=== PATIENT | female | born 1975 | race Caucasian/White ===

== ENCOUNTER → 2018-06-07 16:39 | Outpatient (CLI) | payer OTHER, SELFPAY ==
[2018-06-11 14:11] LABS: HPV Reflexed? NOT INDICATED
== END ==
PROVIDERS: Visit Provider Obstetrics & Gynecology
DX: Z12.4 Encounter for screening for malignant neoplasm of cervix (principal)
CPT/HCPCS: 88175; G0145

== ENCOUNTER → 2018-07-21 15:24 | Outpatient (CLI) | payer OTHER, SELFPAY ==
--- NOTE | 2018-07-21 15:28 | BI_ITS ---
MAMMOGRAPHY - BILATERAL SCREENING REASON FOR EXAM: Female, 42 years old. Routine annual screening examination. PERTINENT HISTORY: Mother with breast cancer. Grandmother with breast cancer. TECHNIQUE: Digital bilateral breast cale (3D mammographic acquisition) in the CC and MLO projections. 2-D mediolateral oblique (MLO) and craniocaudad (CC) views of both breasts were obtained. CAD: Full Field Digital Mammography with Computer Added Detection was performed. COMPARISON: Comparison is made with prior study dated June 15, 2017 and June 03, 2016. FINDINGS: Breast Composition: The breasts are extremely dense, which lowers the sensitivity of mammography. There are no dominant masses or suspicious calcifications. No other significant abnormalities are identified. There has been no significant change since the prior study. BI/SCREENING MAMM (CAD), BILAT IMPRESSION: Stable bilateral screening mammogram. Yearly follow-up mammogram recommended. (A) ASSESSMENT CATEGORY: BIRADS Category 1: Negative. A letter regarding these results will be sent to the patient by the facility within 30 days. Approximately 10% of breast cancers are not detected by mammography. A normal mammogram should not delay biopsy of a clinically suspicious abnormality. [id number] Electronically Signed: Mk Harrison MD at 8:54 EST Tel [phone], Service support ,
== END ==
PROVIDERS: Family Provider Student in an Organized Health Care Education/Training Program; PCP Student in an Organized Health Care Education/Training Program; Visit Provider Obstetrics & Gynecology
DX: Z12.31 Encounter for screening mammogram for malignant neoplasm of breast (principal)
CPT/HCPCS: 77063; 77067

== ENCOUNTER 2018-12-01 16:00 | Emergency (ER) | payer OTHER, SELFPAY ==
[2018-12-01 16:01] VITALS: BP 123/81; PULSE 71; RESP 13; TEMP 37.4; O2SAT 96; BMI 21.1
--- NOTE | 2018-12-01 16:18 | ED.VISSUMM ---
- ER Visit Summary Date of Service: 12/01/18 Chief Complaint: Constipation History of Present Illness: The patient is a 43 F who is having difficulty with bowel movements. Her last bowel movement was 2 days ago. She has tried walking and taking increased water, but nothing seems to help. She feels like she needs to have a bowel movement. She went to urgent care and they said they could not help her, so she was referred here. She is asking about enemas or suppositories. She has not tried any of those yet. Patient has had some changes in her food. She is following closely with a residence hall director and eats very healthily, but she has been trying some new foods. She is taking zinc capsules. Patient does report sensitivities to multiple drugs and other substances and is very cautious about any kind of chemicals. Otherwise no fevers, no vomiting, no urinary symptoms. No other issues. No history of constipation with fecal impaction Physical Examination: Afebrile and vital signs are unremarkable. Patient is pacing about the room and appears uncomfortable but she is not toxic or in distress. Skin normal in color. Normal heart rate and no respiratory distress. Test Results: None performed Emergency Department Course and Treatment: It sounds like the patient has a fecal impaction trying new foods and supplements. She is otherwise very healthy and very conscious about what she eats and ingests. After discussion with her, we will try a soapsuds enema. Patient is improved after enema and will be discharged. Increase fluids and fiber. Follow-up with primary care. Treatment Plan: As above Disposition: Discharge Impression: 1. Constipation This note was generated with [employer] dictation software. It may contain incorrect words, spelling, and punctuation that were not noted in review of the chart prior to signing ED Disposition - Plan for ED Patient: Referrals: Alessandro Lebron DO [Primary Care Provider] -
--- NOTE | 2018-12-01 17:09 | ED.DEP ---
ED Disposition - Plan for ED Patient: Instructions: ED Impaction Fecal Treated Referrals: Alessandro Lebron DO [Primary Care Provider] -
== END 2018-12-01 17:17 | disposition home or self-care (01) ==
LOC: ED 16:23
PROVIDERS: Emergency Provider Emergency Medicine; Family Provider Student in an Organized Health Care Education/Training Program; PCP Student in an Organized Health Care Education/Training Program
DX: K59.00 Constipation, unspecified (principal); E72.12 Methylenetetrahydrofolate reductase deficiency
CPT/HCPCS: 99284

== ENCOUNTER → 2019-07-03 16:46 | Outpatient (CLI) | payer OTHER, SELFPAY ==
[2019-07-06 15:49] LABS: HPV Reflexed? NOT INDICATED
== END ==
PROVIDERS: PCP Student in an Organized Health Care Education/Training Program; Visit Provider Obstetrics & Gynecology
DX: Z12.4 Encounter for screening for malignant neoplasm of cervix (principal)
CPT/HCPCS: 88175; G0145

== ENCOUNTER → 2019-07-25 15:35 | Outpatient (CLI) | payer OTHER, SELFPAY ==
--- NOTE | 2019-07-25 15:37 | BI_ITS ---
MAMMOGRAPHY - BILATERAL SCREENING REASON FOR EXAM: Female, 43 years old. Routine annual screening examination. PERTINENT HISTORY: Mother with breast cancer. Grandmother with breast cancer. TECHNIQUE: Digital bilateral breast mitra (3D mammographic acquisition) in the CC and MLO projections. 2-D mediolateral oblique (MLO) and craniocaudad (CC) views of both breasts were obtained. CAD: Full Field Digital Mammography with Computer Added Detection was performed. COMPARISON: Comparison is made with prior study dated July 21, 2018 and June 15, 2017. FINDINGS: Breast Composition: The breasts are extremely dense, which lowers the sensitivity of mammography. There are no dominant masses or suspicious calcifications. No other significant abnormalities are identified. There has been no significant change since the prior study. BI/SCREEN MAMM (CAD) W/MITRA BILAT IMPRESSION: Stable bilateral screening mammogram. Yearly follow-up mammogram recommended. (A) ASSESSMENT CATEGORY: BIRADS Category 1: Negative. A letter regarding these results will be sent to the patient by the facility within 30 days. Approximately 10% of breast cancers are not detected by mammography. A normal mammogram should not delay biopsy of a clinically suspicious abnormality. [id number] Electronically Signed: Mk Harrison, at 8:57 EST , Service support ,
== END ==
PROVIDERS: Family Provider Student in an Organized Health Care Education/Training Program; PCP Student in an Organized Health Care Education/Training Program; Referring Provider Obstetrics & Gynecology; Visit Provider Obstetrics & Gynecology
DX: Z12.31 Encounter for screening mammogram for malignant neoplasm of breast (principal)
CPT/HCPCS: 77063; 77067

== ENCOUNTER → 2020-07-08 | Outpatient (CLI) | payer OTHER, SELFPAY ==
[2020-07-15 20:06] LABS: HPV Reflexed? NOT INDICATED
== END | disposition home or self-care (01) ==
LOC: LABSPEC 16:02
PROVIDERS: PCP Student in an Organized Health Care Education/Training Program; Visit Provider Student in an Organized Health Care Education/Training Program
DX: Z12.4 Encounter for screening for malignant neoplasm of cervix (principal)
CPT/HCPCS: 88175; G0145

== ENCOUNTER → 2020-08-02 14:53 | Outpatient (CLI) | payer OTHER, SELFPAY ==
--- NOTE | 2020-08-02 14:55 | BI_ITS ---
MAMMOGRAPHY - BILATERAL SCREENING REASON FOR EXAM: Female, 45 years old. Routine annual screening examination. PERTINENT HISTORY: Mother with breast cancer. Grandmother with breast cancer. TECHNIQUE: Digital bilateral breast mitra (3D mammographic acquisition) in the CC and MLO projections. 2-D mediolateral oblique (MLO) and craniocaudad (CC) views of both breasts were obtained. CAD: Full Field Digital Mammography with Computer Added Detection was performed. COMPARISON: Comparison is made with prior examination dated 07/25/2019 and 07/21/2018. FINDINGS: Breast Composition: The breasts are extremely dense, which lowers the sensitivity of mammography. There are no dominant masses or suspicious calcifications. No other significant abnormalities are identified. There has been no significant change since the prior study. BI/SCREEN MAMM (CAD) W/MITRA BILAT IMPRESSION: Stable bilateral screening mammogram. Yearly follow-up mammogram recommended. (A) ASSESSMENT CATEGORY: BIRADS Category 1: Negative. A letter regarding these results will be sent to the patient by the facility within 30 days. Approximately 10% of breast cancers are not detected by mammography. A normal mammogram should not delay biopsy of a clinically suspicious abnormality. [id number] Electronically Signed: Mk Harrison, at 15:40 EST , Service support ,
== END ==
PROVIDERS: PCP Student in an Organized Health Care Education/Training Program; Referring Provider Student in an Organized Health Care Education/Training Program; Visit Provider Student in an Organized Health Care Education/Training Program
DX: Z12.31 Encounter for screening mammogram for malignant neoplasm of breast (principal)
CPT/HCPCS: 77063; 77067

== ENCOUNTER 2021-05-23 08:38 | Emergency (ER) | payer OTHER, SELFPAY ==
[2021-05-23 08:41] VITALS: BP 151/136; PULSE 101; RESP 16; TEMP 36.5; O2SAT 99; BMI 21.4
[2021-05-23 09:00] VITALS: O2SAT 98
--- NOTE | 2021-05-23 09:40 | EX.ED.DYSGE1 ---
HPI History of Present Illness Chief Complaint: Shortness of Breath Informant: patient and spouse/S.O. Narrative Narrative: Patient is a 45-year-old female with history of mast cell disease follows with [facility] presenting with worsening shortness of breath. Patient states for the past 2 weeks she has been having episodes where she feels that her throat is itching and burning. She also gets numbness and burning around her mouth and burning in her hands and feet. Today she had an episode where this was happening and she also started to have spasms of her hands where she could not move them. Patient self administered an EpiPen that was recently prescribed to her and then came to the emergency room. She notes she did go off of her Singulair this summer in an attempt to be more naturalistic. She denies any new exposures over the past 2 weeks however notes that they did recently change their water softener system. She is not sure if this is triggering her symptoms. She denies any new stressors in her life except for her medical issues. She notes her father does have a history of blood clots as well as multiple autoimmune diseases. Patient follows with an shaping machine operator, GI doctor and functional medicine doctor, all in the [facility] system. She notes today the oxygen felt heavy and she felt like she was not breathing and oxygen. She had blood work earlier this week through her PCP including CBC, CMP, B12 and folic acid. Her last thyroid labs were checked back in February and were normal. Patient know she has been having night sweats amd intermittent rashes as well. [facility] Medical History Mast cell disease Home Medications montelukast 1 tab PO DAILY 12/01/18 [History Last Taken Unknown] Allergy/AdvReac Type Severity Reaction Status Date / Time bee venom protein (honey bee) Allergy Hives Verified 05/23/21 09:25 Beef Containing Products Allergy unknown, Verified 05/23/21 09:25 shown up on allergy testing garlic Allergy unknown, Verified 05/23/21 09:25 shown up on allergy testing milk Allergy unknown, Verified 05/23/21 09:25 shown up on allergy testing Social History Smoking Status: Never smoker ROS ROS ED Constitutional Constitutional ED: Reports sweats; Denies chills or fever(s) ENT ENT ED: Reports sore throat; Denies ear pain or rhinorrhea Cardiovascular Cardiovascular: Denies chest pain or palpitations Respiratory/Chest Respiratory/Chest: Reports dyspnea; Denies cough, dyspnea on exertion or sputum Gastrointestinal Gastrointestinal: Denies abdominal pain, nausea or vomiting Genitourinary Genitourinary ED: Denies dysuria Musculoskeletal Musculoskeletal: Denies arthralgias or myalgias Integumentary Reports rash Neurologic Neurologic: Reports paresthesias; Denies headache(s) or weakness Psychiatric Psychiatric: Denies anxiety or depression EXAM Physical Exam Const Vital Signs: 05/23/21 08:41 05/23/21 09:00 Temperature 97.7 F L Temperature Source Temporal Pulse Rate 101 H Respiratory Rate 16 Respiratory Effort Normal Respiratory Depth Normal Respiratory Pattern Normal Blood Pressure 151/136 H Blood Pressure Mean 141 Pulse Ox 99 Oxygen Delivery Method Room Air Room Air Positive well nourished and well developed General Appearance ED: well developed HEENT Reports TM's clear and moist mucous membranes HEENT Narrative: Normal oropharynx. Uvula is midline. Negative for trauma Tympanic Membrane ED: Yes TM's clear Eyes PERRL and EOMs intact bilaterally Neck no lymphadenopathy, supple and no JVD Chest Wall inspection of chest normal Resp normal respiratory effort and clear to auscultation bilaterally Cardio regular rate, regular rhythm and no murmurs GI normal to inspection, nondistended, normoactive bowel sounds and non-tender Extremity normal to inspection Extremity Narrative: Patient does develop carpal spasm when blood pressure cuff goes off General Extremety ED: Negative for edema or tenderness General Extremity: Negative for edema Neuro oriented x3, CN's II-XII intact bilaterally and no sensory deficits noted Sensorium / Orientation: alert Psych mental status grossly normal Mood & Affect: anxious Skin no rashes or lesions noted and no wounds MDM MDM MDM Narrative Medical decision making narrative: Patient evaluated for constellation of symptoms including episodes of burning sensation in her mouth and then burning in her extremities as well as spasms of her hands. While in the ER she does demonstrate a carpal spasm with a blood pressure cuff. I question if she is having carpopedal spasm from hyperventilation even though she states she has been breathing normally. While in the ER she is very anxious and speaking rapidly and that seems to exacerbate her symptoms however she does seem to be breathing normally. Screening lab work is grossly normal. Her potassium is mildly low at 3.3. She is offered potassium supplements but would prefer to increase her dietary potassium intake. D-dimer is negative and I do not think this is cardiac in nature. Her breath sounds are clear and she has no findings consistent with anaphylaxis. Patient is offered an anxiolytic as I think this would help but she declines. She does state that she is willing to go back on her Singulair. She is encouraged to follow-up with her activity assistant as well as her PCP. She states she previously been referred to neurology and I did discuss that it could be beneficial to rule out more obscure causes of her symptomatology. Patient is also encouraged to follow-up with endocrinology given her family history of autoimmune disorders and her consultation of symptoms. Patient is counseled on return precautions. She declines any medications including prednisone stating that she is too sensitive to medicines. Patient is counseled on signs and symptoms requiring return to the emergency room. Patient verbalizes agreement and understand this plan. Patient discharged home in stable and improved condition. Patient's PCP is paged to discuss the patient's visit. Lab Data Attestation: I reviewed the patient's lab results. Labs: Laboratory Results - last 24 hr 05/23/21 05/23/21 05/23/21 09:35 09:35 09:35 WBC 5.2 RBC 4.78 Hgb 14.9 Hct 43.4 MCV 90.8 MCH 31.2 MCHC 34.3 RDW Std Deviation 40.6 RDW Coeff of Salty 12.0 Plt Count 244 MPV 8.9 Immature Gran % (Auto) 0.200 Neut % (Auto) 74.0 H Lymph % (Auto) 15.6 L [place] % (Auto) 5.6 Eos % (Auto) 2.9 Baso % (Auto) 1.7 H Absolute Neuts (auto) 3.8 Absolute Lymphs (auto) 0.81 L Nucleated RBC % 0 D-Dimer Quant (PE/DVT) <= 0.27 Sodium Potassium Chloride Carbon Dioxide Anion Gap BUN Creatinine BUN/Creatinine Ratio Glucose Magnesium 2.1 TSH 1.27 Urine Color Urine Clarity Urine pH Ur Specific [place] Urine Protein Urine Glucose (UA) Urine Ketones Urine Occult Blood Urine Nitrite Urine Bilirubin Urine Urobilinogen Ur Leukocyte Esterase Urine RBC Urine WBC Ur Squamous Epith Cells Urine Bacteria Urine Mucus 05/23/21 05/23/21 09:35 10:03 WBC RBC Hgb Hct MCV MCH MCHC RDW Std Deviation RDW Coeff of Salty Plt Count MPV Immature Gran % (Auto) Neut % (Auto) Lymph % (Auto) [place] % (Auto) Eos % (Auto) Baso % (Auto) Absolute Neuts (auto) Absolute Lymphs (auto) Nucleated RBC % D-Dimer Quant (PE/DVT) Sodium 139 Potassium 3.3 L Chloride 105 Carbon Dioxide 26.0 Anion Gap 8 BUN 12 Creatinine 0.79 BUN/Creatinine Ratio 15.2 Glucose 116 H Magnesium TSH Urine Color Straw Urine Clarity Clear Urine pH 7.0 Ur Specific [place] 1.010 Urine Protein Negative Urine Glucose (UA) Normal Urine Ketones Negative Urine Occult Blood Negative Urine Nitrite Negative Urine Bilirubin Negative Urine Urobilinogen Normal Ur Leukocyte Esterase Negative Urine RBC 0 SEEN Urine WBC 0 SEEN Ur Squamous Epith Cells 0 SEEN Urine Bacteria 0 SEEN Urine Mucus 0 SEEN Discharge Plan Triage Chief Complaint: Shortness of Breath ED Provider: Bernadine Lewis Dx/Rx/DC Orders Clinical Impression: Paresthesia, Burning sensation of throat, Spasms of the hands or feet, Hypokalemia Instructions: ED Hypokalemia, ED Pain, Acute, Uncertain Cause, ED Paraesthesias Prescriptions: No Action montelukast 10 tablet 1 tab PO DAILY RF: 0 Primary Care Provider: Alessandro Lebron Referrals: Alessandro Lebron DO [Primary Care Provider] - Activity Restrictions/Additional Instructions: I would recommend resume starting your Singulair. Do not take epinephrine unless you feel that your throat is closing up, you have a lip/tongue swelling or other similar symptoms. The trigger for your underlying mast cell is not clear at this time however your work-up here is largely normal. I recommend he follow-up with your activity assistant as well as neurology. Your potassium was mildly low today. You can get [id number] potassium supplements or increase your potassium intake with foods. Disposition Disposition: Home, Self Care
[2021-05-23 09:42] LABS: Absolute Lymphocyte Count 0.81 X10^3/uL (0.83-4.51); Absolute Neutrophil Count 3.8 X10^3/uL (2.0-7.7); Basophil# 0.09 X10^3/uL; Basophil% 1.7 % (0-1); Eosinophil# 0.15 X10^3/uL; Eosinophils% 2.9 % (0-5); Hematocrit 43.4 % (37-47); Hemoglobin 14.9 g/dL (12.0-15.0); Lymphocyte # 0.81 X10^3/ul (0.83-4.51); Lymphocyte % 15.6 % (19-41); Mean Corp Hgb Conc 34.3 g/dL (32-36); Mean Corpuscular Hgb 31.2 pg (27.0-32.0); Mean Corpuscular Volume 90.8 fL (81-99); Mean Platelet Vol. 8.9 fl (6.2-12.0); Monocyte# 0.29 X10^3/uL; Monocyte% 5.6 % (0-10); NRBC Flagged by Analyzer 0 % (0-5); Neutrophil # 3.83 X10^3/uL (2.7-7.7); Platelet Count 244 K/mm3 (150-450); RBC Distribution Width SD 40.6 fl (35.1-43.9); Red Blood Count 4.78 M/mm3 (4.2-5.4); White Blood Count 5.2 K/mm3 (4.4-11.0)
[2021-05-23 09:54] LABS: D-Dimer Quantitative (DVT/PE) <= 0.27 FEU/ug/m (0.27-0.49)
[2021-05-23 09:56] LABS: Anion Gap 8 (5-15); BUN 12 mg/dL (7-18); BUN/Creat Ratio 15.2 RATIO (10-20); Chloride 105 mmol/L (98-107); Creatinine, Serum 0.79 mg/dL (0.55-1.02); Glucose 116 mg/dL (74-106); Potassium 3.3 mmol/L (3.5-5.1); Sodium Level 139 mmol/L (136-145)
[2021-05-23 10:06] LABS: Magnesium 2.1 mg/dL (1.6-2.6); Thyroid Stim Hormone (TSH) 1.27 uIU/mL (0.358-3.74)
[2021-05-23 10:09] LABS: Bacteria 0 SEEN /hpf (None Seen); Mucous, Urine 0 SEEN /hpf (<or=2+); Red Blood Cells-Urine 0 SEEN /hpf (0-5); Squamous Epithelial Cells - UA 0 SEEN /hpf (5-10); White Blood Cells 0 SEEN /hpf (0-5)
[2021-05-23 10:11] LABS: Color, Urine Straw (Yellow); Glucose, Dipstick Normal (Normal); Ketone-Dipstick Negative (Negative); Leukocyte Esterase-Dipstick Negative /ul (Negative); Nitrite-Dipstick Negative (Negative); Occult Blood-Urine Negative /ul (Negative); Protein-Dipstick Negative (Negative); Urine Bilirubin Dipstick Negative (Negative); Urine Clarity Clear (Clear); Urine Urobilinogen Normal (Normal)
== END 2021-05-23 11:09 | disposition home or self-care (01) ==
PROVIDERS: Emergency Provider Emergency Medicine; PCP Student in an Organized Health Care Education/Training Program
DX: R06.02 Shortness of breath (principal); E87.6 Hypokalemia; R20.2 Paresthesia of skin; R25.2 Cramp and spasm; D47.01 Cutaneous mastocytosis
CPT/HCPCS: 80047; 81001; 83735; 84443; 85025; 85379; 99283; A4216

== ENCOUNTER 2021-11-17 16:37 | Outpatient (CLI) | payer OTHER, SELFPAY ==
[2021-11-25 14:04] LABS: HPV APTIMA, High Risk Negative (Negative)
== END 2021-11-17 23:59 | disposition home or self-care (01) ==
LOC: LABSPEC 16:37
PROVIDERS: PCP Student in an Organized Health Care Education/Training Program; Visit Provider Student in an Organized Health Care Education/Training Program
DX: Z12.4 Encounter for screening for malignant neoplasm of cervix (principal)
CPT/HCPCS: 87624; 88175; G0145

== ENCOUNTER 2021-12-01 14:41 | Outpatient (CLI) | payer OTHER, SELFPAY ==
--- NOTE | 2021-12-01 14:44 | BI_ITS ---
MAMMOGRAPHY - BILATERAL SCREENING 3-D TOMOSYNTHESIS REASON FOR EXAM: Female, 46 years old. SCREENING PERTINENT HISTORY: No significant family history. TECHNIQUE: 2-D mammograms and 3-D Tomosynthesis of the breast (s) were performed. CAD was performed. COMPARISON: 08/02/2020 FINDINGS: The breast composition is Extermely dense tissue. Scattered benign calcifications are seen. No dense spiculated masses or suspicious microcalcifications are identified. No architectural distortion is identified. There is no skin thickening or retraction. There has been no significant change since the prior study. BI/SCRN MAMM (CAD)W/MITRA BILAT IMPRESSION: No mammographic signs of malignancy. Routine yearly mammograms recommended. ASSESSMENT CATEGORY: BIRADS Category 1: Negative. A letter regarding these results will be sent to the patient by the facility within 30 days. FOLLOW UP RECOMMENDATION: Yearly follow up mammogram recommended. (A) Approximately 10% of breast cancers are not detected by mammography. A normal mammogram should not delay biopsy of a clinically suspicious abnormality. Electronically Signed: Niko Martinez MD at 15:28 EDT ,
== END 2021-12-01 23:59 | disposition home or self-care (01) ==
LOC: OPBI 14:42
PROVIDERS: PCP Student in an Organized Health Care Education/Training Program; Visit Provider Student in an Organized Health Care Education/Training Program
DX: Z12.31 Encounter for screening mammogram for malignant neoplasm of breast (principal)
CPT/HCPCS: 77063; 77067

== ENCOUNTER → 2022-12-02 | Outpatient (CLI) | payer OTHER, SELFPAY ==
--- NOTE | 2022-12-02 15:55 | BI_ITS ---
MAMMOGRAPHY - BILATERAL SCREENING REASON FOR EXAM: Female, 47 years old. Routine annual screening examination. PERTINENT HISTORY: Mother with breast cancer. Grandmother with breast cancer. TECHNIQUE: Digital bilateral breast mitra (3D mammographic acquisition) in the CC and MLO projections. 2-D mediolateral oblique (MLO) and craniocaudad (CC) views of both breasts were obtained. CAD: Full Field Digital Mammography with Computer Added Detection was performed. COMPARISON: Comparison is made with prior examination dated December 01, 2021 and August 02, 2020. FINDINGS: Breast Composition: The breasts are extremely dense, which lowers the sensitivity of mammography. There are no dominant masses or suspicious calcifications. No other significant abnormalities are identified. There has been no significant change since the prior study. BI/SCRN MAMM (CAD)W/MITRA BILAT IMPRESSION: Stable bilateral screening mammogram. Yearly follow-up mammogram recommended. (A) ASSESSMENT CATEGORY: BIRADS Category 2: Benign. A letter regarding these results will be sent to the patient by the facility within 30 days. Approximately 10% of breast cancers are not detected by mammography. A normal mammogram should not delay biopsy of a clinically suspicious abnormality. [id number] Electronically Signed: Mk Harrison MD at 10:16 EDT ,
== END | disposition home or self-care (01) ==
LOC: OPBI 15:52
PROVIDERS: PCP Student in an Organized Health Care Education/Training Program; Referring Provider Student in an Organized Health Care Education/Training Program; Visit Provider Student in an Organized Health Care Education/Training Program
DX: Z12.31 Encounter for screening mammogram for malignant neoplasm of breast (principal); Z80.3 Family history of malignant neoplasm of breast
CPT/HCPCS: 77063; 77067

== ENCOUNTER 2024-05-30 11:11 | Day surgery (SDC) | payer OTHER, SELFPAY ==
[2024-05-30] VITALS (13 sets, daily range): BP systolic 103–127; BP diastolic 53–75; PULSE 52–77; RESP 16–18; TEMP 36.6–37.4; O2SAT 96–100; BMI 23.6
[2024-05-30 12:02] LABS: Internal QC Validated? YES +Cl - CLEAR BKGD; Pregnancy, Serum, hCG Quali. NEGATIVE Negative
[2024-05-30 12:08] LABS: Absolute Lymphocyte Count 0.67 X10^3/uL (0.83-4.51); Absolute Neutrophil Count 13.3 X10^3/uL (2.0-7.7); Basophil# 0.04 X10^3/uL; Basophil% 0.3 % (0-1); Hematocrit 43.3 % (37-47); Hemoglobin 14.5 g/dL (12.0-15.0); Lymphocyte # 0.67 X10^3/ul (0.83-4.51); Lymphocyte % 4.7 % (19-41); Mean Corp Hgb Conc 33.5 g/dL (32-36); Mean Corpuscular Hgb 30.7 pg (27.0-32.0); Mean Corpuscular Volume 91.7 fL (81-99); Mean Platelet Vol. 9.3 fl (6.2-12.0); Monocyte# 0.32 X10^3/uL; Monocyte% 2.2 % (0-10); NRBC Flagged by Analyzer 0 % (0-5); Neutrophil # 13.29 X10^3/uL (2.7-7.7); Neutrophil % 92.4 % (47-70); Platelet Count 285 K/mm3 (150-450); RBC Distribution Width CV 12.5 % (11.6-14.6); RBC Distribution Width SD 41.7 fl (35.1-43.9); Red Blood Count 4.72 M/mm3 (4.2-5.4); White Blood Count 14.4 K/mm3 (4.4-11.0)
[2024-05-30 12:09] LABS: ALB/GLOB Ratio 1.2 RATIO (0.9-2.4); AST(SGOT) 16 U/L (15-37); Alanine Aminotransfer ALT/SGPT 23 U/L (13-56); Albumin, Serum 4.1 g/dL (3.2-5.0); Alkaline Phosphatase 39 U/L (45-117); Anion Gap 5 (5-15); BUN 13 mg/dL (7-18); BUN/Creat Ratio 20.2 RATIO (10-20); Calcium,Total 9.6 mg/dL (8.5-10.1); Chloride 106 mmol/L (98-107); Creatinine, Serum 0.64 mg/dL (0.55-1.02); EST Glomerular Filtration Rate 104 mL/min (>60); Est Glom Filt Rate - Afr Amer 125 mL/min (>60); Estimated Creatinine Clearance 86.99 ml/min; Globulin 3.4 g/dL (2.2-4.2); Glucose 133 mg/dL (74-106); Protein, Total 7.5 g/dL (6.4-8.2); Sodium Level 139 mmol/L (136-145)
[2024-05-30 12:49] LABS: Color, Urine Yellow (Yellow); Glucose, Dipstick Normal (Normal); Leukocyte Esterase-Dipstick Negative /ul (Negative); Nitrite-Dipstick Negative (Negative); Occult Blood-Urine 10 /ul (Negative); Protein-Dipstick 15 mg/dl (Negative); Specific Gravity, Urine 1.015 (1.002-1.030); Urine Bilirubin Dipstick Negative (Negative); Urine Clarity Clear (Clear); Urine Urobilinogen Normal (Normal)
[2024-05-30 12:59] LABS: Ketone-Dipstick 150 mg/dl (Negative)
[2024-05-30 13:13] LABS: Red Blood Cells-Urine 5-10 SEEN /hpf (0-5); Squamous Epithelial Cells - UA 0-5 SEEN /hpf (5-10)
[2024-05-30 13:14] LABS: Bacteria RARE /hpf (None Seen); Mucous, Urine 1+ /hpf (<or=2+); White Blood Cells 0-5 SEEN /hpf (0-5)
--- NOTE | 2024-05-30 13:28 | US_ITS ---
INDICATION: ovarian torsion (L) EXAMINATION: Ultrasound US Transvaginal Non-OB TECHNIQUE: Transvaginal (for optimal evaluation of the adnexa) pelvic ultrasound was performed. Grayscale, spectral waveform, and color flow Doppler evaluation of the adnexa. COMPARISON: January 03, 2007 FINDINGS: UTERUS: The uterus measures 6.3 x 2.5 x 4.8 cm. There is no uterine mass. The endometrial stripe measures 2.3 mm in AP diameter which is within normal limits. RIGHT OVARY: There is nonvisualization of the left ovary. LEFT OVARY: 7.7 x 6.5 x 5.0 cm. There is a simple 6.3 x 3.9 x 4.9 cm cyst that contains a 0.7 x 0.5 x 1.1 cm mural solid nodule with internal vascularity. There is decreased blood flow to the left ovary FREE FLUID: There is a small to moderate volume of free fluid. US/Transvaginal Non- IMPRESSION: Enlarged left ovary containing a complex 6.3 x 3.9 x 4.9 cm cyst with a mural nodule concerning for malignancy and decreased flow to the left ovary. Nonvisualization of the right ovary, possibly secondary to overlying bowel gas. Small to moderate amount of free fluid N.B. : The above Results were Read Back by Jill Redman MD to Ugo Velez DO, and understanding confirmed on 05/30/2024 14:51:06 (ET). Electronically Signed: Jill Redman MD at 14:52 EDT ,
[2024-05-30] MEDS: Ondansetron 4 MG/2 ML Vial IV (13:34)
[2024-05-30] MEDS: Ketorolac 30 MG/ML Syringe IV (13:34)
--- NOTE | 2024-05-30 13:45 | ED.RN ---
due to mast cell disease gave Toradol and Zofran. holding Morphine until patient request.
[2024-05-30] MEDS: Morphine 4 MG/ML Syringe IV (15:40)
--- NOTE | 2024-05-30 16:21 | EDS_ITS ---
HPI History of Present Illness Chief Complaint: Abd Pain Informant: patient and spouse/S.O. Narrative Narrative: 48-year-old female presenting to the emergency room with left lower abdominal pain. Patient states that last night after dinner she suddenly developed a sharp stabbing pain in the left lower pelvis. She notes associated vomiting. She states that during the night she had multiple bowel movements but no diarrhea. Pain does not radiate to the flank of the back. She states that the pain has been persistent since last night and she really cannot get comfortable that she feels more comfortable laying on her right side. She has had a prior right oophorectomy. She was being followed with serial ultrasounds as recently as a spring for ovarian cyst on the left. At that time it was reported that she was stable at 58 mm. Her PROCESS COACH is Dr. Ortega. 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 Home Medications ?Medication ?Instructions ?Recorded ?Last Taken ?Type montelukast 10 mg tablet 1 tab PO DAILY ASTHMA 12/01/18 Unknown History omalizumab 150 mg/mL subcutaneous 150 mg subcut Q28D ASTHMA 05/30/24 Unknown History syringe (Xolair) Allergy/AdvReac Type Severity Reaction Status Date / Time bee venom protein (honey bee) Allergy Hives Verified 05/30/24 11:12 Beef Containing Products Allergy unknown, Verified 05/30/24 11:12 shown up on allergy testing garlic Allergy unknown, Verified 05/30/24 11:12 shown up on allergy testing milk Allergy unknown, Verified 05/30/24 11:12 shown up on allergy testing aspirin AdvReac Unknown Other Verified 05/30/24 16:40 codeine AdvReac Unknown Other Verified 05/30/24 16:40 morphine AdvReac Unknown Other Verified 05/30/24 16:40 NSAIDS (Non-Steroidal AdvReac Unknown Other Verified 05/30/24 16:40 Anti-Inflamma Quinolones AdvReac Unknown Other Verified 05/30/24 16:40 vancomycin AdvReac Unknown Other Verified 05/30/24 16:40 Surgical History S/P ovarian cystectomy Social History Smoking Status: Never smoker ROS ROS ED Constitutional Constitutional ED: Denies chills, fever(s) or weight loss Eyes Eyes: Denies change in vision or diplopia ENT ENT ED: Denies ear pain, rhinorrhea or sore throat Cardiovascular Cardiovascular: Denies chest pain, orthopnea, palpitations or racing heartbeat Respiratory/Chest Respiratory/Chest: Denies cough, dyspnea or orthopnea Gastrointestinal Gastrointestinal: Reports abdominal pain, nausea and vomiting; Denies diarrhea Genitourinary Genitourinary ED: Denies dysuria, hematuria or urinary frequency Musculoskeletal Musculoskeletal: Denies arthralgias or myalgias Integumentary Denies abscess or rash Neurologic Neurologic: Denies headache(s) or weakness Psychiatric Psychiatric: Denies anxiety, depression, suicidal ideation or suicidal thoughts Endocrine Endocrinology: Denies polydipsia, polyphagia or polyuria Allergic/Immunologic Allergic/Immunologic ED: Denies mouth swelling, tongue swelling or urticaria EXAM Physical Exam Narrative Exam Narrative: Patient appears uncomfortable Const Vital Signs: 05/30/24 11:12 05/30/24 13:39 05/30/24 15:00 Temperature 97.8 F Temperature Source Oral Pulse Rate 66 52 L 62 Respiratory Rate 16 16 18 Blood Pressure 126/75 H 127/61 H 107/68 Blood Pressure Mean 92 83 81 Blood Pressure Source Blood Pressure Position Blood Pressure Location Pulse Ox 99 96 Oxygen Delivery Method Room Air 05/30/24 15:44 05/30/24 15:56 05/30/24 16:41 Temperature 99.3 F H 99.3 F H Temperature Source Pulse Rate 62 56 L 56 L Respiratory Rate 18 18 18 Blood Pressure 109/70 109/70 109/70 Blood Pressure Mean 83 83 Blood Pressure Source Monitor Blood Pressure Position Semi-Fowlers Blood Pressure Location Left Arm Pulse Ox 100 97 97 Oxygen Delivery Method Room Air Room Air Positive well nourished and well developed General Appearance ED: well developed HEENT Reports normocephalic, head/scalp atraumatic and moist mucous membranes Eyes PERRL and EOMs intact bilaterally Neck no lymphadenopathy, supple and no JVD Resp normal respiratory effort and clear to auscultation bilaterally Cardio regular rate, regular rhythm and no murmurs GI GI Narrative: soft Auscultation: normoactive bowel sounds Palpation: soft and tender LLQ; Negative for guarding or rebound tenderness present Back/Spine no CVA tenderness and normal ROM Extremity normal to inspection General Extremety ED: Negative for edema General Extremity: Negative for edema Neuro oriented x3 and CN's II-XII intact bilaterally Sensorium / Orientation: alert Motor Exam: strength 5/5 throughout Psych mental status grossly normal Mood & Affect: Negative for depressed or tearful Skin no rashes or lesions noted and no wounds MDM MDM MDM Narrative Medical decision making narrative: Differential diagnosis includes but not limited to ovarian torsion ovarian cyst pelvic abscess diverticulitis diverticular abscess colitis kidney stone White count elevated 14.4 with a hemoglobin of 14.5 platelet count of 285 LFTs within normal limits test is negative glucose 133 creatinine 0.64 urinalysis shows 5-10 red cells but no overt infection. Because of the patient's history of pelvic ultrasound was obtained which demonstrates large ovarian cyst on the right with concerns for malignancy. There is decreased blood flow noted to the left ovary. Patient received a dose of Toradol and because of her mast cell history morphine was held over the area of the right with her concern for possible histamine release. She also received a dose of Zofran. After speaking with the radiologist I spoke with Dr. Camarillo who is on- call for Dr. Ortega. She came to the emergency department evaluate the patient and the plan is to take the patient to the operating room concern for ovarian torsion. History & Record Review Discussion w/independent historian: Patient and Significant other Lab Data Attestation: I reviewed the patient's lab results. Labs: Laboratory Results - last 24 hr 05/30/24 05/30/24 11:44 12:35 WBC 14.4 H RBC 4.72 Hgb 14.5 Hct 43.3 MCV 91.7 MCH 30.7 MCHC 33.5 RDW Std Deviation 41.7 RDW Coeff of Salty 12.5 Plt Count 285 MPV 9.3 Immature Gran % (Auto) 0.400 Neut % (Auto) 92.4 H Lymph % (Auto) 4.7 L [place] % (Auto) 2.2 Eos % (Auto) 0.0 Baso % (Auto) 0.3 Absolute Neuts (auto) 13.3 H Absolute Lymphs (auto) 0.67 L Nucleated RBC % 0 Sodium 139 Potassium 4.0 Chloride 106 Carbon Dioxide 28.0 Anion Gap 5 BUN 13 Creatinine 0.64 Estim Creat Clear Calc 86.99 Est GFR (MDRD) Af Amer 125 Est GFR (MDRD) Non-Af 104 BUN/Creatinine Ratio 20.2 H Glucose 133 H Calcium 9.6 Total Bilirubin 0.70 AST 16 ALT 23 Alkaline Phosphatase 39 L Total Protein 7.5 Albumin 4.1 Globulin 3.4 Albumin/Globulin Ratio 1.2 Serum , Qual NEGATIVE Urine Color Yellow Urine Clarity Clear Urine pH 8.0 Ur Specific [place] 1.015 Urine Protein 15 H Urine Glucose (UA) Normal Urine Ketones 150 A* Urine Occult Blood 10 H Urine Nitrite Negative Urine Bilirubin Negative Urine Urobilinogen Normal Ur Leukocyte Esterase Negative Urine RBC 5-10 SEEN Urine WBC 0-5 SEEN Ur Squamous Epith Cells 0-5 SEEN Urine Bacteria RARE Urine Mucus 1+ Radiography Diagnostic Testing: Clinical Impression(s) from Imaging Studies Transvaginal US 05/30/24 13:28 IMPRESSION: Enlarged left ovary containing a complex 6.3 x 3.9 x 4.9 cm cyst with a mural nodule concerning for malignancy and decreased flow to the left ovary. Nonvisualization of the right ovary, possibly secondary to overlying bowel gas. Small to moderate amount of free fluid N.B. : The above Results were Read Back by Jill Redman MD to Ugo Velez DO, and understanding confirmed on 05/30/2024 14:51:06 (ET). Electronically Signed: Jill Redman MD at 14:52 EDT , ADDENDUM: 05/30/24 1459 IMPRESSION: Enlarged left ovary containing a complex 6.3 x 3.9 x 4.9 cm cyst with a mural nodule concerning for malignancy and decreased flow to the left ovary. Nonvisualization of the right ovary, possibly secondary to overlying bowel gas. Small to moderate amount of free fluid N.B. : The above Results were Read Back by Jill Redman MD to Ugo Velez DO, and understanding confirmed on 05/30/2024 14:51:06 (ET). Electronically Signed: Jill Redman MD at 14:52 EDT , Management Discussion w/another healthcare provider: Clinical Abstractor (Dr. Camarillo) and Radiologist Discharge Plan Dx/Rx/DC Orders Clinical Impression: Pelvic pain, Torsion of left ovary, Ovarian cyst Disposition Disposition: Acute Care Hospital [facility] Discharge Date/Time: 05/30/24 16:08
[2024-05-30] MEDS: Lactated Ringers 1,000 ML 15 ML IV (16:22)
--- NOTE | 2024-05-30 16:23 | PRE.ANES_ITS ---
ASA Classification* ASA Classification ASA Classification: 2 and E Assessment & Plan Anesthesia* Anesthesia Assessment Anesthesia Assessment: Discussed sedation and/or anesthesia options, risks, benefits, and alternatives with patient/parents/legal guardian/POA. Questions invited. The patient/parents/legal guardian/POA seems to understand and agrees to proceed with anesthesia plan. Reviewed the physical assessment, medical history, allergy history and patient home medications list prior to surgery/procedure/anesthetic and documented any changes. Performed airway and anesthesia risk assessments. Anesthesia Type Anesthesia Type: General History Source History Obtained from:: Patient and Chart Anesthesia Focused Assessment* Temperature: 99.3 F Pulse Rate: 56 Blood Pressure: 109/70 Respiratory Rate: 18 Pulse Ox: 97 Oxygen Delivery Method: Room Air Airway Assessment Mouth opens: >3 cm Mallampati Score: II Teeth Condition: Chipped/Broken (Patient has a chipped and bonded tooth #9.) Neck Range of motion (ROM): Full ROM Focused Labs Anesthesia Preop lab: CBC WBC 14.4 K/mm3 (4.4-11.0) H 05/30/24 11:44 RBC 4.72 M/mm3 (4.2-5.4) 05/30/24 11:44 Hgb 14.5 g/dL (12.0-15.0) 05/30/24 11:44 Hct 43.3 % (37-47) 05/30/24 11:44 Plt Count 285 K/mm3 (150-450) 05/30/24 11:44 CHEMISTRY Potassium 4.0 mmol/L (3.5-5.1) 05/30/24 11:44 Sodium 139 mmol/L (136-145) 05/30/24 11:44 Magnesium 2.1 mg/dL (1.6-2.6) 05/23/21 09:35 BUN 13 mg/dL (7-18) 05/30/24 11:44 Creatinine 0.64 mg/dL (0.55-1.02) 05/30/24 11:44 Glucose 133 mg/dL (74-106) H 05/30/24 11:44 TSH 1.27 uIU/mL (0.358-3.74) 05/23/21 09:35 COAG Pre-Assessment Diagnosis/Proposed Procedure Planned Operative Procedure(s): Left salpingo-oophorectomy with ovarian cyst removal and right salpingectomy Anesthesia History 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 When Was Last Pacemaker Check QUESTION #4 FULL TEXT: You/Your Family Experience fever (hyperthermia) with Anesthesia Last Oral Intake Last Oral intake: Last Oral Intake NPO since 18:00 05/30/24 15:44 Meds taken in AM with sips of water? Meds patient instructed to take am of surgery PONV PONV - cable installer: PONV - cable installer Female HX of Motion Sickness HX of N/V After Surgery Non-Smoker Duration of Surgery greater than 60 minutes Number of Risk Factors PONV Score Height & Weight Height & Weight: Anesthesia: Height & Weight Height 5 ft 3 in 05/30/24 15:44 Weight: 60.328 kg 05/30/24 15:44 Body Mass Index (BMI) 23.6 05/30/24 15:44 Respiratory Assessment Respiratory Assessment - cable installer: Respiratory Tract Infection Hx - cable installer Hx Respiratory Tract Infection No 05/30/24 15:44 STOP Sleep Apnea STOP Sleep Apnea - cable installer: STOP Sleep Apnea - cable installer Hx Hypertension No 05/30/24 15:44 Hx Sleep Apnea No 05/30/24 15:44 CPAP BIPAP Do you snore loudly (louder No 05/30/24 15:44 than talking or can be heard Do you often feel tired/ No 05/30/24 15:44 fatigued/ sleepy during daytime? Has anyone observed you stop No 05/30/24 15:44 breathing during sleep? STOP Results Negative 05/30/24 15:44 QUESTION #5 FULL TEXT : Do you snore loudly (louder than talking or can be heard through closed doors)? 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 Specify any problems Hx of Preganancy in last 3 Months Nurse Filling Out Transfusion & Questions: Date: Time: Patient unable to answer at this time (ie. confused, unrespo /Reproduction History /Reproductive History - cable installer: /Reproductive Hx- cable installer Hx Now No 05/30/24 15:44 Gestational Age (in weeks): EDC: Hx Hx Para Hx Section SAB No 05/30/24 15:44 Active Medications Active Medications: Current Medications Generic Name Dose Route Start Last Admin Trade Name Freq PRN Reason Stop Dose Admin Lactated Ringer's 1,000 mls @ 15 mls/hr 05/30/24 16:30 05/30/24 16:22 IV 06/05/24 05:49 15 mls/hr .Q48H KENYETTA Administration Protocol [facility] Medical History (Updated 05/30/24 @ 16:[address] 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 Home Medications ?Medication ?Instructions ?Recorded ?Last Taken ?Type montelukast 10 mg tablet 1 tab PO DAILY ASTHMA 12/01/18 Unknown History omalizumab 150 mg/mL subcutaneous 150 mg subcut Q28D ASTHMA 05/30/24 Unknown History syringe (Xolair) Allergy/AdvReac Type Severity Reaction Status Date / Time bee venom protein (honey bee) Allergy Hives Verified 05/30/24 11:12 Beef Containing Products Allergy unknown, Verified 05/30/24 11:12 shown up on allergy testing garlic Allergy unknown, Verified 05/30/24 11:12 shown up on allergy testing milk Allergy unknown, Verified 05/30/24 11:12 shown up on allergy testing aspirin AdvReac Unknown Other Verified 05/30/24 16:40 codeine AdvReac Unknown Other Verified 05/30/24 16:40 morphine AdvReac Unknown Other Verified 05/30/24 16:40 NSAIDS (Non-Steroidal AdvReac Unknown Other Verified 05/30/24 16:40 Anti-Inflamma Quinolones AdvReac Unknown Other Verified 05/30/24 16:40 vancomycin AdvReac Unknown Other Verified 05/30/24 16:40 Surgical History (Updated 05/30/24 @ 16:[address] Honorio Arguelles MD) S/P ovarian cystectomy Social History Smoking Status: Never smoker Review of Systems (Anesthesia) ROS Narrative System reviewed and no additional complaints, except as documented.
--- NOTE | 2024-05-30 16:24 | PCM.HP.OB ---
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 Home Medications ?Medication ?Instructions ?Recorded ?Last Taken ?Type montelukast 10 mg tablet 1 tab PO DAILY ASTHMA 12/01/18 Unknown History omalizumab 150 mg/mL subcutaneous 150 mg subcut Q28D ASTHMA 05/30/24 Unknown History syringe (Xolair) Allergy/AdvReac Type Severity Reaction Status Date / Time bee venom protein (honey bee) Allergy Hives Verified 05/30/24 11:12 Beef Containing Products Allergy unknown, Verified 05/30/24 11:12 shown up on allergy testing garlic Allergy unknown, Verified 05/30/24 11:12 shown up on allergy testing milk Allergy unknown, Verified 05/30/24 11:12 shown up on allergy testing Social History Smoking Status: Never smoker Vital Signs Vital Signs Vital Signs: 05/30/24 11:12 05/30/24 13:39 05/30/24 15:00 Temperature 97.8 F Temperature Source Oral Pulse Rate 66 52 L 62 Respiratory Rate 16 16 18 Blood Pressure 126/75 H 127/61 H 107/68 Blood Pressure Mean 92 83 81 Blood Pressure Source Blood Pressure Position Blood Pressure Location Pulse Ox 99 96 Oxygen Delivery Method Room Air 05/30/24 15:44 05/30/24 15:56 Temperature 99.3 F H Temperature Source Pulse Rate 62 56 L Respiratory Rate 18 18 Blood Pressure 109/70 109/70 Blood Pressure Mean 83 83 Blood Pressure Source Monitor Blood Pressure Position Semi-Fowlers Blood Pressure Location Left Arm Pulse Ox 100 97 Oxygen Delivery Method Room Air Weight Weight: 133 lb Body Mass Index (BMI) 23.6 Labs Labs Labs: Hct 43.3 % (37-47) Hgb 14.5 g/dL (12.0-15.0)
--- NOTE | 2024-05-30 16:31 | PCM.HP.STD ---
HPI - General General Date of Service: 05/30/24 Chief Complaint: LLQ pain HPI Narrative DENVER VILLARREAL, is a 48 F who presents DENVER VILLARREAL is a 48 F who presents to ED with LLQ pain that started at 9pm last night. She reports sharp LLQ with nausea and vomiting. The intense pain has persisted. Emesis has decreased but she hasn't eaten anything. She had several BM's last night but denies diarrhea. 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 Home Medications ?Medication ?Instructions ?Recorded ?Last Taken ?Type montelukast 10 mg tablet 1 tab PO DAILY ASTHMA 12/01/18 Unknown History acetaminophen 500 mg tablet 1,000 mg (2 x 500 mg) PO Q8 5 days 05/30/24 Unknown Rx (Acetaminophen Extra Strength) #30 tabs omalizumab 150 mg/mL subcutaneous 150 mg subcut Q28D ASTHMA 05/30/24 Unknown History syringe (Xolair) oxycodone 5 mg tablet 5 mg PO Q8H PRN severe pain 7 days 05/30/24 Unknown Rx #10 TABLETS Allergy/AdvReac Type Severity Reaction Status Date / Time bee venom protein (honey bee) Allergy Hives Verified 05/30/24 11:12 Beef Containing Products Allergy unknown, Verified 05/30/24 11:12 shown up on allergy testing garlic Allergy unknown, Verified 05/30/24 11:12 shown up on allergy testing milk Allergy unknown, Verified 05/30/24 11:12 shown up on allergy testing aspirin AdvReac Unknown Other Verified 05/30/24 16:40 codeine AdvReac Unknown Other Verified 05/30/24 16:40 morphine AdvReac Unknown Other Verified 05/30/24 16:40 NSAIDS (Non-Steroidal AdvReac Unknown Other Verified 05/30/24 16:40 Anti-Inflamma Quinolones AdvReac Unknown Other Verified 05/30/24 16:40 vancomycin AdvReac Unknown Other Verified 05/30/24 16:40 Surgical History S/P ovarian cystectomy Social History Smoking Status: Never smoker Vital Signs Vital Signs Vital Signs: 10/15/24 11:12 05/30/24 13:39 05/30/24 15:00 Temperature 97.8 F Temperature Source Oral Pulse Rate 66 52 L 62 Respiratory Rate 16 16 18 Blood Pressure 126/75 H 127/61 H 107/68 Blood Pressure Mean 92 83 81 Blood Pressure Source Blood Pressure Position Blood Pressure Location Pulse Ox 99 96 Oxygen Delivery Method Room Air 05/30/24 15:44 05/30/24 15:56 Temperature 99.3 F H Temperature Source Pulse Rate 62 56 L Respiratory Rate 18 18 Blood Pressure 109/70 109/70 Blood Pressure Mean 83 83 Blood Pressure Source Monitor Blood Pressure Position Semi-Fowlers Blood Pressure Location Left Arm Pulse Ox 100 97 Oxygen Delivery Method Room Air Weight Weight: 133 lb Body Mass Index (BMI) 23.6 Physical Exam Const alert, oriented x3 and no apparent distress Resp normal respiratory effort GI soft to palpation and non-distended GI Narrative: (+) LLQ tenderness but otherwise non-tender. No rebound or guarding. Results Lab / Micro Data Attestation: I reviewed the patient's lab results. 05/30/24 11:44 05/30/24 11:44 Labs: Laboratory Results - last 24 hr 05/30/24 11:44: WBC 14.4 H, RBC 4.72, Hgb 14.5, Hct 43.3, MCV 91.7, MCH 30.7, MCHC 33.5, RDW Std Deviation 41.7, RDW Coeff of Salty 12.5, Plt Count 285, MPV 9.3, Immature Gran % (Auto) 0.400, Neut % (Auto) 92.4 H, Lymph % (Auto) 4.7 L, [place] % (Auto) 2.2, Eos % (Auto) 0.0, Baso % (Auto) 0.3, Absolute Neuts (auto) 13.3 H, Absolute Lymphs (auto) 0.67 L, Nucleated RBC % 0, Sodium 139, Potassium 4.0, Chloride 106, Carbon Dioxide 28.0, Anion Gap 5, BUN 13, Creatinine 0.64, Estim Creat Clear Calc 86.99, Est GFR (MDRD) Af Amer 125, Est GFR (MDRD) Non-Af 104, BUN/Creatinine Ratio 20.2 H, Glucose 133 H, Calcium 9.6, Total Bilirubin 0.70, AST 16, ALT 23, Alkaline Phosphatase 39 L, Total Protein 7.5, Albumin 4.1, Globulin 3.4, Albumin/Globulin Ratio 1.2, Serum , Qual NEGATIVE 05/30/24 12:35: Urine Color Yellow, Urine Clarity Clear, Urine pH 8.0, Ur Specific [place] 1.015, Urine Protein 15 H, Urine Glucose (UA) Normal, Urine Ketones 150 A*, Urine Occult Blood 10 H, Urine Nitrite Negative, Urine Bilirubin Negative, Urine Urobilinogen Normal, Ur Leukocyte Esterase Negative, Urine RBC 5-10 SEEN, Urine WBC 0-5 SEEN, Ur Squamous Epith Cells 0-5 SEEN, Urine Bacteria RARE, Urine Mucus 1+ Imaging Radiology Impression Transvaginal US 05/30/24 13:28 IMPRESSION: Enlarged left ovary containing a complex 6.3 x 3.9 x 4.9 cm cyst with a mural nodule concerning for malignancy and decreased flow to the left ovary. Nonvisualization of the right ovary, possibly secondary to overlying bowel gas. Small to moderate amount of free fluid N.B. : The above Results were Read Back by Jill Redman MD to Ugo Velez DO, and understanding confirmed on 05/30/2024 14:51:06 (ET). Electronically Signed: Jill Redman MD at 14:52 EDT , ADDENDUM: 05/30/24 1459 IMPRESSION: Enlarged left ovary containing a complex 6.3 x 3.9 x 4.9 cm cyst with a mural nodule concerning for malignancy and decreased flow to the left ovary. Nonvisualization of the right ovary, possibly secondary to overlying bowel gas. Small to moderate amount of free fluid N.B. : The above Results were Read Back by Jill Redman MD to Ugo Velez DO, and understanding confirmed on 05/30/2024 14:51:06 (ET). Electronically Signed: Jill Redman MD at 14:52 EDT , Assessment & Plan Assessment/Plan (1) Torsion of left ovary: (2) Ovarian cyst: QUALIFIERS: Laterality: left Qualified Code(s): N83.202 - Unspecified ovarian cyst, left side (3) Pelvic pain: PLAN: Plan Discussed R/B/A of management options of left ovarian torsion with patient. She wishes to proceed with surgery. Plan for a left salpingoophorectomy with ovarian cyst removal and right salpingectomy. All questions answered and patient agrees with plan. will be primary surgeon.
--- NOTE | 2024-05-30 16:45 | OV_PTH ---
PATIENT: DENVER VILLARREAL [place] [facility] [id number] AGE/SX: 48/F ROOM: RE05/30/[address]: Dr. Linh Camarillo MD : 1975 BED: DIS: 05/30/2024 SPEC #: [id number] RECD: 05/31/24 10:51 STATUS: LILIYA REQ #: [id number] JERSON: 05/30/24 16:[address]: Linh Camarillo DEPT: SURGICAL PATHOLOGY RECD BY: Kell Medrano ENTERED: 05/31/24 12:25 SP TYPE: OVARY OTHR DR: Dr. Alessandro Lebron DO Tissues: OVARIAN CYST Procedures: Surgery Specimen Level IV HEADER OPERATION: Laparoscopic left salpingectomy PRE-OP DIAGNOSIS: Torsion of left ovary, ovarian cyst, pelvic pain, left hematosalpinx TISSUE SUBMITTED: Left hematosalpinx MICROSCOPIC DIAGNOSIS Left hematosalpinx, salpingectomy: Hemorrhagic infarct of fallopian tube and benign epithelial cyst with associated blood clots. AM. 06/01/2024 COMMENT Case has been reviewed in consultation with Dr. Marcelino who concurs with the above diagnosis. IDC:TERESA MICROSCOPIC DESCRIPTION Slides are reviewed. GROSS DESCRIPTION Received in fixative is one container labeled with the patient's name and designated Left hematosalpinx. The specimen consists of a fallopian tube measuring 6.5cm in length and up to 1.0cm in diameter. Fimbrial end is not identified. Also present in the container is a detached congested and hemorrhagic cyst-like structure measuring in aggregate 5.5 x 5.0 x 2.0cm and weighing 19gm. Sections of the fallopian tube reveal that is filled with blood clots. No mass lesion is identified. Sections of the cystic structure reveal congested and hemorrhagic surfaces. No mass lesions or papillations are identified. [place] sections are submitted in four cassettes as follows: 1- fallopian tube, 2- cystic structure, 3&4- presumed blood clots. 05/31/2024 TC:5 CPT:[id number]
--- NOTE | 2024-05-30 17:09 | PCM.DC ---
Discharge Instructions Diet Discharge Diet: No restrictions (Increase fluid intake for the next 48 hours.) Activity Discharge Activity: May Not Drive (while on pain medication) Return to work on:: 06/02/24 May shower in (days): 1 May resume sexual activity in: 1 week Additional Activity Instructions:: Ambulate often the next week after surgery. Nothing in the vagina for 5 days. Dressing / Incision Call your doctor if your incision/area has: Continuous Slow Oozing, Sudden Increased Bleeding, Increased Pain/ Swelling, Increased Redness and Foul Smelling Discharge Call your doctor if you observe: Fever of 101 or Higher Cleanse incision/area with: Soap & Water (your incisions have skin glue, it can stay on for 10 days or until it falls off) Follow Up Care Please Follow Up With: Marybel Herbert MD When: Call [phone] or send a [employer] message to schedule a follow up with our office. Test Results: Test results from this visit will be discussed in further detail at your follow-up appointment, if applicable. Discharge Plan Admission Attending Provider: Linh Camarillo Primary Care Provider: Alessandro Lebron Instructions Print Language: Surinamese Discharge Orders/Prescriptions Prescriptions: New acetaminophen [Acetaminophen Extra Strength] 500 mg tablet 1,000 mg PO Q8 5 Days Qty: 30 0RF oxycodone 5 mg tablet 5 mg PO Q8H PRN (Reason: severe pain) 7 Days Qty: 10 0RF Continued montelukast 10 tablet 1 tab PO DAILY Xolair 150 mg/mL syringe 150 mg subcut Q28D Patient Comments: CALLED [facility] TO CONFIRM RX INSTRUCTIONS AND DOSING (05/30/24) Referrals / Follow Up: Alessandro Lebron DO [Primary Care Provider] - Disposition Disposition (needs filled in before D/C Order can be placed): Home, Self Care
[2024-05-30] MEDS: Bupivacaine Mpf 0.5% 30 ML VIAL (17:19)
--- NOTE | 2024-05-30 17:57 | PCM.OPRPT ---
Report of Operation Date of Procedure: 05/30/24 Pre-Operative Diagnosis: acute pelvic pain, left ovarian torsion Post-Operative Diagnosis: left hematosalpinx Surgery/Procedure Performed:: Laparoscopic left salpingectomy Description of Surgical Findings:: Normal bilateral ovaries, cervix and uterus, right tube surgically absent, left tube torsed and very large and hemorrhagic, filled with blood and small amount of blood in posterior cul de sac Surgeon: Marybel Herbert supervisor precision optical elements: Fela Menchaca M4 Type of Anesthesia: General Anesthesiologist: Ras Lehman Special Medications: none Specimen's removed: left hemotosalpinx Drains: none Estimated Blood Loss (mL): 20 Fluids Replaced: 1000 Description of Procedure: The patient was taken to the operating room where she was prepped and draped in the dorsolithotomy position. Straight catheterization was performed into the bladder. A weighted speculum was placed in the vagina and the anterior lip of the cervix was grasped with a tenaculum. The ZUMI uterine manipulator was placed and the remainder of the instruments were removed from the vagina. Attention was turned to the abdomen. All port sites were infiltrated with 0.5% Marcaine before skin incisions were made. A 5 mm intraumbilical incision was made. The anterior abdominal wall was tented up with 2 towel clamps while a 5 mm blade less trocar and sleeve were directly inserted. Intraperitoneal placement was confirmed with the laparoscope. The pneumoperitoneum was created and the underlying abdominal contents were intact. The patient was placed in Trendelenburg. Right and left lower quadrant ports were placed under direct visualization lateral to the inferior epigastric vessels. The bowel was swept away and the above findings were noted. The torsed tube was untorsed. The antimesenteric portion of the tube was clamped sealed and transected with the LigaSure device. The tube was then clamped sealed and transected across the cornual insertion. The umbilical incision was extended and a 10 mm Endo Catch bag was placed in the peritoneal cavity and the specimen placed in there. He was brought out through the umbilical site. The lateral ports were removed under direct visualization and no active bleeding was noted. The pneumoperitoneum was released. The fascia was closed with 0 Vicryl suture. The skin incisions were closed with Monocryl suture in a subcuticular fashion and skin glue by the student with me present and assisting. The vaginal instruments were removed and the vaginal sweep was completed by me. The procedure was performed by me with assistance other than as dictated above. All sponge and needle counts were correct and the patient was taken to the recovery room in stable condition. The music assistant provided camera guidance and tissue manipulation during the procedure. Grafts/Implants Used: none Procedure Start Time: 17:17 Procedure Stop Time: 18:01 Complications none Admit VTE Documentation VTE Present on Admission: No VTE Mechan Device Prophylaxis: SCD's VTE Pharm Prophylaxis ordered?: No
--- NOTE | 2024-05-30 18:12 | PCM.POST.ANE ---
Anesthesia: Postop Eval I Current Vital Signs Temperature: 99.1 F Pulse Rate: 75 Blood Pressure: 104/63 Respiratory Rate: 17 Pulse Ox: 99 Assessment Airway patent: Yes Spontaneous unlabored respirations: Yes nausea: No Vomiting: No Anesthesia Complication: No Fluid Hydration Crystalloid volume administer (ml): 1,000 Total IV fluid infused: 1,000 Progress Note Anesthesia document: Postop Eval 1 completed: Yes
--- NOTE | 2024-05-30 18:13 | PCM.POSTANE2 ---
Anesthesia Postop Eval I Sum Postop Eval Completion status Anesthesia document: Postop Eval 1 completed: Yes Anesthesia Postop Eval I Summary Anesthesia Postop Eval I Summary: Anesthesia Postop Eval I: Assessment Summary Airway patent Yes 05/30/24 18:12 Spontaneous unlabored Yes 05/30/24 18:12 respirations Mental status nausea No 05/30/24 18:12 Vomiting No 05/30/24 18:12 Anesthesia Postop Eval I: Fluid Summary Crystalloid volume administer 1,000 05/30/24 18:12 (ml) Colloids volume administered ( ml) Blood Product volume administered (ml) Total IV fluid infused 1,000 05/30/24 18:12 Anesthesia Postop Eval I: Summary Notes Anesthesia Complication No 05/30/24 18:12 Anesthesia Complication Comment: Post-operative progress note Anesthesia: Postop Eval II Evaluation Mental status: Awake Pain Level: 0 nausea: No Vomiting: No
[2024-05-30] MEDS: oxyCODONE 5 MG Tablet PO (19:05)
[2024-05-30] MEDS: Acetaminophen 500 MG Tablet 1000 MG PO (19:05)
[2024-06-06 18:08] LABS: Cancer Antigen 125 6.8 U/mL (0.0-38.1)
== END 2024-05-30 19:34 | disposition home or self-care (01) ==
LOC: ED 15:59 → SDC 16:03 → ACINP 16:04
PROVIDERS: Obstetrics & Gynecology; Emergency Provider Emergency Medicine; PCP Student in an Organized Health Care Education/Training Program; Visit Provider Obstetrics & Gynecology
PROC: (CPT 58720; principal; 2024-05-30 16:30)
DX: N83.512 Torsion of left ovary and ovarian pedicle (principal); N70.11 Chronic salpingitis; N83.8 Other noninflammatory disorders of ovary, fallopian tube and broad ligament; Z90.79 Acquired absence of other genital organ(s)
CPT/HCPCS: 58661; 00840; 76830; 80053; 81001; 84703; 85025; 86304; 88305; 99283; J7120; A4216; J2405